=== PATIENT | female | born 1995 | race Two or more races ===

== ENCOUNTER 2019-03-23 18:45 | Emergency (ER) | payer OTHER ==
--- NOTE | 2019-03-23 19:39 | ER Document Report ---
ED Medical Screen (RME) - General Chief Complaint: Chest Pain Stated Complaint: CHEST PAIN Time Seen by Provider: 03/23/19 19:36 Mode of Arrival: Ambulatory Information source: Patient Notes: 23-year-old female presented to ED for complaint of chest pain intermittently for 2 months. She states is 1-2 times a day. She states she has been called her doctor and they told her if it continued to come into the emergency room to be examined. 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 Patient is alert oriented respirations regular and unlabored lungs are clear to auscultation. I have greeted and performed a rapid initial assessment of this patient. A comprehensive ED assessment and evaluation of the patient, analysis of test results and completion of medical decision making process will be conducted by an additional ED providers. Dictation of this chart was performed using voice recognition software; therefore, there may be some unintended grammatical errors. TRAVEL OUTSIDE OF THE [place] IN LAST 30 DAYS: No - Related Data Allergies/Adverse Reactions: No Known Allergies Allergy (Verified 03/23/19 18:48) Physical Exam - Vital signs Vitals: Temp Pulse Resp BP Pulse Ox 98.7 F 58 L 16 121/68 100 03/23/19 19:03 03/23/19 19:03 03/23/19 19:03 03/23/19 19:03 03/23/19 19:03 Course - Vital Signs Vital signs: Temp Pulse Resp BP Pulse Ox 98.7 F 58 L 16 121/68 100 03/23/19 19:03 03/23/19 19:03 03/23/19 19:03 03/23/19 19:03 03/23/19 19:03
[2019-03-23 21:03] LABS: APPEARANCE,URINE SLIGHTLY-CLOUDY; BILIRUBIN,URINE NEGATIVE (NEGATIVE); COLOR,URINE STRAW; GLUCOSE, URINE NEGATIVE (NEGATIVE); KETONES,URINE NEGATIVE (NEGATIVE); LEUKOCYTE ESTERASE,URINE TRACE (NEGATIVE); NITRITE,URINE NEGATIVE (NEGATIVE); PROTEIN,URINE NEGATIVE (NEGATIVE); UROBILINOGEN,URINE NEGATIVE mg/dL (<2.0)
[2019-03-23 21:23] LABS: HEMOGLOBIN 14.7 g/dL (12.0-15.5); MEAN CORPUSCULAR HEMOGLOBIN 30.8 pg (27.0-33.4); MEAN CORPUSCULAR HGB CONC 33.5 g/dL (32.0-36.0); MEAN CORPUSCULAR VOLUME 92 fl (80-97); PLATELET COUNT 157 10^3/uL (150-450); RED BLOOD COUNT 4.78 10^6/uL (3.72-5.28); RED CELL DISTRIBUTION WIDTH 13.3 % (11.5-14.0); WHITE BLOOD COUNT 7.3 10^3/uL (4.0-10.5)
[2019-03-23 21:40] LABS: ANION GAP 12 (5-19); BLOOD UREA NITROGEN 18 mg/dL (7-20); CALCIUM 9.7 mg/dL (8.4-10.2); CARBON DIOXIDE 21 mmol/L (22-30); CHLORIDE 106 mmol/L (98-107); SODIUM 138.7 mmol/L (137-145)
[2019-03-23 21:53] LABS: GLUCOSE 66 mg/dL (75-110)
--- NOTE | 2019-03-23 21:57 | RADIOLOGY REPORT (SQ) ---
EXAM DESCRIPTION: XR CHEST 1 VIEW COMPLETED DATE/TME: 03/23/2019 21:06 CLINICAL HISTORY: 23 years Female cp COMPARISON: None. FINDINGS: The cardiomediastinal silhouette appears unremarkable. No consolidating infiltrates or pleural effusions. No pneumothorax. IMPRESSION: No acute abnormality is identified.
--- NOTE | 2019-03-23 22:08 | EKG REPORT ---
SEVERITY:- NORMAL ECG - SINUS RHYTHM : Confirmed by: Rj Reyes MD 23-Mar-2019 22:07:59
[2019-03-23] MEDS ORDERED: SUCRALFATE 1 GM TABLET PO ONE (23:55)
[2019-03-23] MEDS ORDERED: FAMOTIDINE 20 MG TABLET PO ONE (23:55)
--- NOTE | 2019-03-23 23:59 | ER Document Report ---
ED Cardiac - General Chief Complaint: Chest Pain Stated Complaint: CHEST PAIN Time Seen by Provider: 03/23/19 19:36 Mode of Arrival: Ambulatory Notes: Patient is a 23-year-old female without chronic medical problems who presents with 2 months of intermittent chest discomfort. The patient states that several times daily she develops a cramping, aching discomfort in her central chest. States the pain comes on randomly and lasts for anywhere between 30 and 40 minutes and then resolve spontaneously. No obvious triggering or exacerbating factor. Does resolve spontaneously. Has not tried any therapies to reduce the frequency or to treat the pain when present. Denies any symptoms at the time of my evaluation. Notes that when these episodes of pain do occur it almost takes her breath away but denies any distinct shortness of breath. She denies any history of DVT or pulmonary embolus. She is not on any form of estrogen. She denies any cardiac history. Has not seen her primary doctor regarding today's c oncerns. Came to the emergency department tonight because her contacted the nurse line for their insurance and they were told to come to the emergency department. TRAVEL OUTSIDE OF THE [place] IN LAST 30 DAYS: No - Related Data Allergies/Adverse Reactions: No Known Allergies Allergy (Verified 03/23/19 19:38) Past Medical History - General Information source: Patient - Social History Smoking Status: Never Smoker Frequency of alcohol use: None Drug Abuse: None Lives with: Spouse/Significant other Family History: Reviewed & Not Pertinent Patient has suicidal ideation: No Patient has homicidal ideation: No Renal/ Medical History: Denies: Hx Peritoneal Dialysis Past Surgical History: Reports: Hx Orthopedic Surgery - meniscus repair Review of Systems - Review of Systems Notes: Constitutional: Negative for fever. HENT: Negative for sore throat. Eyes: Negative for visual changes. Cardiovascular: Positive for chest pain. Respiratory: Negative for shortness of breath. Gastrointestinal: Negative for abdominal pain, vomiting or diarrhea. Genitourinary: Negative for dysuria. Musculoskeletal: Negative for back pain. Skin: Negative for rash. Neurological: Negative for headaches, weakness or numbness. 10 point ROS negative except as marked above and in HPI. Physical Exam - Vital signs Vitals: Temp Pulse Resp BP Pulse Ox 98.7 F 58 L 16 121/68 100 03/23/19 19:03 03/23/19 19:03 03/23/19 19:03 03/23/19 19:03 03/23/19 19:03 Interpretation: Bradycardic Notes: PHYSICAL EXAMINATION: GENERAL: Well-appearing, well-nourished and in no acute distress. HEAD: Atraumatic, normocephalic. EYES: Pupils equal round and reactive to light, extraocular movements intact, sclera anicteric, conjunctiva are normal. ENT: nares patent, oropharynx clear without exudates. Moist mucous membranes. NECK: Normal range of motion, supple without lymphadenopathy LUNGS: Breath sounds clear to auscultation bilaterally and equal. No wheezes rales or rhonchi. HEART: Regular rate and rhythm without murmurs ABDOMEN: Soft, nontender, normoactive bowel sounds. No guarding, no rebound. No masses appreciated. EXTREMITIES: Normal range of motion, no pitting or edema. No cyanosis. NEUROLOGICAL: No focal neurological deficits. Moves all extremities spontaneously and on command. PSYCH: Normal mood, normal affect. SKIN: Warm, Dry, normal turgor, no rashes or lesions noted. Course - Re-evaluation Re-evalutation: 03/23/19 23:56 Presentation of chest pain in an otherwise well appearing patient. Low clinical suspicion for ACS given clinical history, exam, EKG without ST elevations or depressions, and negative initial troponin. HEART score less than or equal to 3. PE also seems unlikely given clinical history, absence of tachycardia or dys pnea. Patient is PERC criteria negative. CXR without evidence of pneumothorax or pneumonia. No widened mediastinum. Aortic dissection also seems unlikely given history, symmetric pulses, CXR, and vitals. Pain has been intermittent for the last 2 months and I do not clinically suspect any life threatening etiology of her intermittent chest pain. Have advised treatment for possible esophageal spasms given the characterization of her discomfort as well as outpatient follow-up. At this time will discharge with return precautions and follow-up recommendations. Verbal discharge instructions given a the bedside and opportunity for questions given. Medication warnings reviewed. Patient is in agr eement with this plan and has verbalized understanding of return precautions and the need for primary care follow-up in the next 24-72 hours. - Vital Signs Vital signs: Temp Pulse Resp BP Pulse Ox 98.7 F 60 15 102/66 99 03/23/19 19:03 03/23/19 19:33 03/24/19 00:01 03/24/19 00:00 03/24/19 00:01 - Laboratory Result Diagrams: 03/23/19 21:05 03/23/19 21:05 Laboratory results interpreted by me: 03/23/19 03/23/19 20:28 21:05 Carbon Dioxide 21 L Glucose 66 L Urine Blood MODERATE H Ur Leukocyte Esterase TRACE H - Diagnostic Test Radiology reviewed: Image reviewed, Reports reviewed Radiology results interpreted by me: 03/23/19 23:56 Chest x-ray: No acute infiltrate or pneumothorax - EKG Interpretation by Me Additional EKG results interpreted by me: 03/23/19 23:57 Sinus rhythm, rate 59. No ST elevations or depressions. QTC is 385. Discharge - Discharge Clinical Impression: Intermittent chest pain Condition: Good Disposition: HOME, SELF-CARE Additional Instructions: You were seen today for chest pain. The exact cause of your pain is unclear. However, based on your cardiac enzyme testing, chest x-ray, and EKG it does not appear that it is from an immediately life-threatening cause at this time. Although your testing here is normal is critical that you follow-up with your primary care physician for continued evaluation of this chest pain. Please return to emergency department immediately if you have worsening of your chest pain, shortness of breath, vomiting, become unable to exert yourself due to pain or difficulty breathing, you pass out, or have any pain that radiates into your arms, jaw, or back. Please also return if you have any additional symptoms that are concerning to you. As we discussed, your symptoms could be esophageal in origin. Please begin josue ing famotidine 40 mg in the morning and 40 mg at night. Take Carafate prior to meals. You need to avoid smoking, sodas, tea, coffee, alcohol, spicy foods, and acidic foods such as citrus fruits, tomato based products, berries, and most fruit juices. Prescriptions: Famotidine 40 mg PO BID #60 tablet Sucralfate [Carafate 1 gm Tablet] 1 gm PO ACHS #120 tablet
[2019-03-24 00:04] VITALS: BP 102/66
== END 2019-03-24 00:13 | disposition home or self-care (01) ==
LOC: ER 18:45
DX: R07.9 Chest pain, unspecified (principal)
CPT/HCPCS: 36415; 71045; 80048; 81001; 81025; 84484; 85027; 93005; 93010; 99285